=== PATIENT | male | born 1945 | race Two or more races ===

== ENCOUNTER 2024-06-04 13:53 | Emergency (ER) | payer OTHER ==
[~2024-06-04] VITALS: Ht 182.9 cm; Wt 91.6 kg
[2024-06-04] MEDS ORDERED: JANUMET 50-1,01 EACH PO (14:49)
[2024-06-04] MEDS ORDERED: GLIMEPIRIDE2 MG (14:49)
[2024-06-04] MEDS ORDERED: METOPROLOL SUCC25 MG (14:50)
[2024-06-04] MEDS ORDERED: DEXILANT60 MG (14:50)
[2024-06-04] MEDS ORDERED: FARXIGA10 MG (14:50)
[2024-06-04] MEDS ORDERED: ATORVASTATIN CA10 MG (14:51)
[2024-06-04 16:56] LABS: HEMATOCRIT 37.1 % (39.0-48.0); HEMOGLOBIN 12.7 g/dL (13-16.00); MEAN CORPUSCULAR HEMOGLOBIN 27.4 pg (27.00-32.0); MEAN CORPUSCULAR HGB CONC 34.2 g/dl (32.0-36.0); PLATELET COUNT 229 K/uL (150-450); RED BLOOD COUNT 4.64 M/uL (4.00-6.00); RED CELL DISTRIBUTION WIDTH 15.5 % (11.5-14.5)
[2024-06-04 17:17] LABS: INR 0.94; PARTIAL THROMBOPLASTIN TIME 25.1 SECONDS (22.0-34.0); PROTHROMBIN TIME 10.3 SECONDS (9.0-11.5)
[2024-06-04 17:24] LABS: CALCIUM 9.2 mg/dL (8.5-10.1); CREATININE SERUM 1.01 mg/dL (0.70-1.30); GFR 71.07; POTASSIUM 4.7 mEq/L (3.5-5.1)
== END 2024-06-04 21:31 | disposition home or self-care (01) ==
LOC: ER 13:55
PROVIDERS: Emergency Medicine
DX: R07.89 Other chest pain (principal); Z88.0 Allergy status to penicillin; E78.00 Pure hypercholesterolemia, unspecified; I10 Essential (primary) hypertension; E11.9 Type 2 diabetes mellitus without complications; Z79.84 Long term (current) use of oral hypoglycemic drugs

== ENCOUNTER 2024-09-05 10:54 | Outpatient (CLI) | payer OTHER ==
[~2024-09-05 10:54] MED LIST: ATORVASTATIN CA10 MG; DEXILANT60 MG; FARXIGA10 MG; GLIMEPIRIDE2 MG; JANUMET 50-1,01 EACH PO; METOPROLOL SUCC25 MG
== END 2024-09-05 10:55 | disposition home or self-care (01) ==
LOC: RAD 10:54
DX: M54.50 Low back pain, unspecified (principal); M16.0 Bilateral primary osteoarthritis of hip